=== PATIENT | male | born 1965 | race Caucasian/White ===

== ENCOUNTER 2024-05-21 11:29 | Inpatient (IN) | payer OTHER, SELFPAY ==
[2024-05-21] VITALS (23 sets, daily range): BP systolic 135–180; BP diastolic 81–99; PULSE 52–86; RESP 14–18; TEMP 35.7–36.9; O2SAT 95–99; BMI 34.7
--- NOTE | 2024-05-21 12:16 | EDS_ITS ---
HPI History of Present Illness Chief Complaint: Chest Pain Informant: patient Onset/Context/Timing Onset: Today and Hours (1) Activity at onset: sudden and exertion Timing: Continuous Quality: Positive for Aching and Heaviness Location: Substernal Worsened By: Nothing Relieved By: Nothing Associated Symptoms: Positive for Diaphoresis, Cough and Lightheadedness; Negative for Nausea, Vomiting, Dyspnea, Fever, Acid Reflux or Palpitations Narrative Narrative: Patient presents with chest pain that began today. Patient states it began approximately an hour before arrival. Patient states it feels like there is some aching and heaviness in the substernal area. Patient denies any radiation of the pain. Patient states has been constant. Patient states he was moving furniture when this began. Patient admits to some mild diaphoresis with this. Patient also admits to some lightheadedness. Patient states he has had a cough recently. Patient states he has been having some pain in both forearms. Patient denies any shortness of breath. Patient denies any nausea or vomiting. Patient denies any palpitations. CVD Risk Factors: Negative for Hypertension, Diabetes, Hypercholesterolemia, Family History 1' </=55 or Smoking PE Risk Factors: Negative for Recent Travel/Surgery, Recent Immobilization, Prior DVT or PE or Cancer PFSH PFS Medical History no medical history no medical history Home Medications ?Medication ?Instructions ?Recorded ?Last Taken ?Type NK 05/21/24 Unknown History Allergy/AdvReac Type Severity Reaction Status Date / Time iodine Allergy Anaphylaxis Verified 05/21/24 11:34 shellfish derived Allergy Anaphylaxis Verified 05/21/24 11:34 Surgical History (Updated 05/21/24 @ 12:[address] Joby Corral DO) Hx of knee surgery Social History Smoking Status: Never smoker ROS ROS ED Constitutional Constitutional ED: Denies chills or fever(s) Eyes Eyes: Denies blurry vision or change in vision ENT ENT ED: Denies rhinorrhea or sore throat Cardiovascular Cardiovascular: Reports as per HPI and chest pain; Denies palpitations Respiratory/Chest Respiratory/Chest: Reports cough; Denies dyspnea Gastrointestinal Gastrointestinal: Denies nausea or vomiting Genitourinary Genitourinary ED: Denies dysuria or hematuria Musculoskeletal Musculoskeletal: Denies back pain or neck pain Integumentary Denies abscess or rash Neurologic Neurologic: Denies headache(s) or weakness Allergic/Immunologic Allergic/Immunologic ED: Denies mouth swelling or urticaria EXAM Physical Exam Const Vital Signs: 05/21/24 11:30 05/21/24 11:35 05/21/24 12:33 Temperature 96.3 F L Temperature Source Temporal Pulse Rate 56 L 56 L Respiratory Rate 14 Respiratory Effort Normal Non-Labored Blood Pressure 180/92 H 164/92 H Blood Pressure Mean 121 Pulse Ox 98 Oxygen Delivery Method Room Air 05/21/24 12:37 05/21/24 12:38 05/21/24 12:42 Temperature 98.1 F Temperature Source Oral Pulse Rate 77 62 Respiratory Rate 16 Respiratory Effort Blood Pressure 164/92 H 146/87 H Blood Pressure Mean 116 Pulse Ox 97 98 Oxygen Delivery Method Room Air Room Air 05/21/24 12:46 05/21/24 13:05 05/21/24 14:00 Temperature Temperature Source Pulse Rate 63 86 58 L Respiratory Rate 16 14 Respiratory Effort Blood Pressure 141/84 H 135/84 H 141/86 H Blood Pressure Mean 101 102 Pulse Ox 99 98 Oxygen Delivery Method Room Air 05/21/24 15:00 05/21/24 15:18 Temperature Temperature Source Pulse Rate 60 59 L Respiratory Rate 14 Respiratory Effort Blood Pressure 157/87 H 173/90 H Blood Pressure Mean 109 Pulse Ox 98 Oxygen Delivery Method Positive well nourished and well developed General Appearance ED: well developed and NAD HEENT Reports moist mucous membranes Neck supple and no JVD Resp normal respiratory effort and clear to auscultation bilaterally Cardio regular rate and regular rhythm GI soft to palpation, non-tender and non-distended Neuro oriented x3, CN's II-XII intact bilaterally and no sensory deficits noted Sensorium / Orientation: awake and alert Motor Exam: strength 5/5 throughout Psych mental status grossly normal Heart Score History: Highly Suspicious ECG: Normal Age: >45 - <65 years Risk Factors: No Risk Factors Troponin: >1 - <3 Normal Limit Score: 4 MDM MDM MDM Narrative Medical decision making narrative: Differential diagnosis includes cardiac dysrhythmia, cardiac ischemia, pneumonia, pneumothorax, electrolyte abnormality, GERD, musculoskeletal pain, and anxiety. Patient has a Wells score of 0. I do not feel this is from a pulmonary embolism. EKG will be obtained to assess for cardiac dysrhythmia and cardiac ischemia. Chest x-ray will be obtained to assess for pneumonia and pneumothorax. CBC will be obtained to assess for leukocytosis and anemia. Basic metabolic profile will be obtained to assess for electrolyte abnormality and renal function. High-sensitivity troponin will be obtained to assess for cardiac ischemia. 2-hour repeat high-sensitivity troponin will be obtained to assess for ongoing cardiac ischemia. Lab Data Attestation: I reviewed the patient's lab results. Lab results narrative: CBC was reviewed. There is a slight leukocytosis of 11.7. The remainder is within normal limits. Basic metabolic profile was reviewed. Potassium was slightly low at 3.1. The remainder was essentially within normal limits. Initial high-sensitivity troponin was reviewed and was normal at 8. 2-hour repeat high-sensitivity troponin was reviewed and was elevated at 218. Labs: Laboratory Results - last 24 hr 05/21/24 05/21/24 11:15 13:15 WBC 11.7 H RBC 5.26 Hgb 15.3 Hct 46.4 MCV 88.2 MCH 29.1 MCHC 33.0 RDW Std Deviation 41.9 RDW Coeff of Oswaldo 12.9 Plt Count 257 MPV 11.3 Immature Gran % (Auto) 0.900 Neut % (Auto) 45.4 L Lymph % (Auto) 40.3 [place] % (Auto) 9.5 Eos % (Auto) 2.9 Baso % (Auto) 1.0 Absolute Neuts (auto) 5.3 Absolute Lymphs (auto) 4.71 H Nucleated RBC % 0 Sodium 140 Potassium 3.1 L Chloride 105 Carbon Dioxide 28.0 Anion Gap 7 BUN 19 H Creatinine 1.00 Est GFR (MDRD) Af Amer 99 Est GFR (MDRD) Non-Af 82 BUN/Creatinine Ratio 19.0 Glucose 125 H Calcium 9.3 Troponin I High Sens 8 218 H* Radiography Chest X-Ray - ED: 1 View, Read by ED Physician, Read by Radiologist and No Acute Disease Diagnostic Testing: Clinical Impression(s) from Imaging Studies Chest X-Ray 05/21/24 12:35 IMPRESSION: No active or acute cardiopulmonary disease. Electronically Signed: Francisco J Leblanc MD at 12:51 EDT Reading Location ID and State: [address] [place] [address] , Service support , Portable 1 view chest x-ray was obtained. On my independent interpretation, lung hanna are clear. There is normal cardiac silhouette. Bony thorax is normal. There is no acute process noted. Radiologist also interpreted the x- ray and agrees. EKG Initial EKG: Attestation: I personally reviewed and interpreted this EKG as follows: Interpretation: No Acute Injury Pattern and Sinus Bradycardia (54) Comments: EKG was obtained. On my independent interpretation, it showed a sinus bradycardia with a rate of 54. SC interval, QRS interval, and QTc interva ls were all normal. [place] was normal. There are no acute ST or T wave changes. Prior EKG tracings: not available for review Prior: No Prior Follow-up EKG: Attestation: I personally reviewed and interpreted this EKG as follows: Interpretation: No Acute Injury Pattern and Sinus Bradycardia (57) Comments: EKG was obtained. On my independent interpretation, it showed a sinus bradycardia with a rate of 57. SC interval, QRS interval, and QTc intervals were all normal. [place] was normal. There are no acute ST or T wave changes. Treatment and Re-Evaluation :: Patient was given aspirin and sublingual nitroglycerin here. Patient's pain improved with nitroglycerin. Patient was given a dose of potassium here. Patient was placed on nitroglycerin paste. Patient was advised of his findings. Case was discussed with cardiology. He recommended giving the patient enoxaparin 1 mg/kg. He recommended admitting the patient to the hospitalist. Case was discussed with the hospitalist. He was in to evaluate the patient. He recommended having cardiology come see him in the emergency department for possible cardiac catheterization. Patient started having more chest pain again despite being on nitroglycerin paste. Because of this, the enoxaparin was held. Cardiology was in to evaluate the patient. He recommended take the patient to the Certified Nuclear Medicine Technologist. Patient was given a dose of Brilinta per Dr. Hollins's recommendation. Patient understood and was agreeable with the plan. All questions were answered. Critical Care Time Critical Care Time: Yes Critical care time (excluding procedures): 30-74 minutes (33 minutes), Including time spent:, Discussing w/Patient &/or Family/Business Management Professor, Discussing w/Consultants, Arranging Admission or Transfer and Performing Direct Patient Care at Bedside Discharge Plan Dx/Rx/DC Orders Clinical Impression: Non-ST elevated myocardial infarction (non-STEMI), Chest pain, Elevated blood pressure reading, Hypokalemia Disposition Disposition: Acute Care Hospital [facility]
--- NOTE | 2024-05-21 12:22 | EKG12_ITS ---
Test Reason : REPEAT Blood Pressure : / mmHG Vent. Rate : 057 BPM Atrial Rate : 057 BPM P-R Int : 168 ms QRS Dur : 086 ms QT Int : 424 ms P-R-T Axes : 012 005 019 degrees QTc Int : 412 ms Sinus bradycardia Nonspecific hyperacute T changes compared to ECG 05/21/2024 @ 11:40 Abnormal ECG Confirmed by Qasim Collado ([id number]), supervising film or videotape editor JOVI HARDY ([id number]) on 05/22/2024 11:19:09 AM Referred By: Confirmed By:Qasim Collado
[2024-05-21 12:32] LABS: Absolute Lymphocyte Count 4.71 X10^3/uL (0.83-4.51); Absolute Neutrophil Count 5.3 X10^3/uL (2.0-7.7); Basophil# 0.12 X10^3/uL; Eosinophil# 0.34 X10^3/uL; Eosinophils% 2.9 % (0-5); Hematocrit 46.4 % (40-54); Hemoglobin 15.3 g/dL (13.0-16.5); Lymphocyte # 4.71 X10^3/ul (0.83-4.51); Lymphocyte % 40.3 % (19-41); Mean Corpuscular Hgb 29.1 pg (27.0-32.0); Mean Corpuscular Volume 88.2 fL (80-94); Mean Platelet Vol. 11.3 fl (6.2-12.0); Monocyte# 1.11 X10^3/uL; Monocyte% 9.5 % (0-10); NRBC Flagged by Analyzer 0 % (0-5); Neutrophil % 45.4 % (47-70); Platelet Count 257 K/mm3 (150-450); RBC Distribution Width CV 12.9 % (11.6-14.6); RBC Distribution Width SD 41.9 fl (35.1-43.9); Red Blood Count 5.26 M/mm3 (4.6-6.2); White Blood Count 11.7 K/mm3 (4.4-11.0)
[2024-05-21] MEDS: Nitroglycerin SL (ED/IMG/CATH) 0.4 MG TABLET SL ×3 (12:33→12:46)
--- NOTE | 2024-05-21 12:35 | RAD_ITS ---
STUDY: X-RAY CHEST REASON FOR EXAM: Male, 59 years old. Chest pain. TECHNIQUE: Single frontal view of the chest. COMPARISON: None. FINDINGS: The lungs are clear and expanded. There is no demonstrated pleural abnormality. Normal size heart. Normal mediastinum and stephanie. Normal visualized pulmonary arteries. Normal visualized aortic arch and descending thoracic aorta. No abnormality of the visualized soft tissue structures of the upper abdomen. RAD/Chest 1 View (Portable) IMPRESSION: No active or acute cardiopulmonary disease. Electronically Signed: Francisco J Leblanc MD at 12:51 EDT ,
[2024-05-21 12:51] LABS: Anion Gap 7 (5-15); BUN 19 mg/dL (7-18); Calcium,Total 9.3 mg/dL (8.5-10.1); Chloride 105 mmol/L (98-107); EST Glomerular Filtration Rate 82 mL/min (>60); Est Glom Filt Rate - Afr Amer 99 mL/min (>60); Glucose 125 mg/dL (74-106); Potassium 3.1 mmol/L (3.5-5.1); Sodium Level 140 mmol/L (136-145); Troponin-I HS (w/2H Reflex) 8 pg/mL (3.0-78.0)
--- NOTE | 2024-05-21 13:30 | ED.RN ---
Pt called out stating that he stood to urinate and his pain returned. Pt states it is now a 3/10 up from 12/05. Also concerned that HR went down into the 50s. HR at time of conversation is 63 bpm. made aware of pt concerns.
[2024-05-21 14:30] LABS: Reflex Troponin-HS? (from REC) Y
[2024-05-21] MEDS: Potassium Chloride Oral Tablet 20 MEQ 40 MEQ PO (14:43)
[2024-05-21 15:06] LABS: Troponin-I HS 218 pg/mL (3.0-78.0)
--- NOTE | 2024-05-21 15:17 | EKG12_ITS ---
Test Reason : CHEST PAIN Blood Pressure : / mmHG Vent. Rate : 054 BPM Atrial Rate : 054 BPM P-R Int : 182 ms QRS Dur : 078 ms QT Int : 418 ms P-R-T Axes : 033 017 027 degrees QTc Int : 396 ms Sinus bradycardia Otherwise normal ECG Confirmed by Qasim Collado ([id number]), offline editor JOVI HARDY ([id number]) on 05/22/2024 11:19:32 AM Referred By: Confirmed By:Qasim Collado
[2024-05-21] MEDS: Nitroglycerin Oint 1 INCH PACKET TD (15:18)
--- NOTE | 2024-05-21 15:44 | PCM.HP.STD ---
HPI - General General Date of Admission: 05/21/24 Date of Service: 05/21/24 Chief Complaint: Chest pain HPI Narrative TERRY REYES, is a 59 M who presents to the emergency room at [facility] with chief complaint of chest pain which started earlier today, patient's thought it was musculoskeletal in nature and took a prednisone, despite this he has been having ongoing chest pain today on and off especially when he tries to exert himself. Patient states that it got really severe when he tried to move some furniture today. Patient states that he had pain down both of his arms today while he had the chest discomfort. Patient was given a nitroglycerin in the ER with resolution of the chest pain. Patient has no history of diabetes, he is not a smoker, there is no history of heart disease in any of his family members. Is got a strong history for hypertension in his family but he has not been diagnosed with hypertension he does not take any medication. Patient was recently in his PCPs office for an exam and his blood pressure was 120/80. Patient states his cholesterol was around 225 and his LDL cholesterol was approximately 130-140. EKG was obtained in the emergency room, it showed nonspecific ST changes in V1 through V3 but no evidence of ischemic pattern. He had a sinus bradycardia. CBC showed an elevated white blood cell count at 11.7, chemistry profile was abnormal for potassium of 3.1, BUN was 19, glucose was 125. Patient's troponin initially was normal, repeat troponin was elevated at 218. Initial plan was for the patient to be admitted to PCU and placed on full anticoagulation and Nitropaste, however, the patient tells me whenever he does anything in the ER like walk to the bathroom he has recurrence of the chest pain. His family seem to be concerned and I called and talked to the gate mortiser operator on-call (Dr. Collado) he will come down to the ER to talk with the patient and examine him. Patient has had nothing to eat since early this morning. It is probable he will undergo heart catheterization. Additional note: Patient underwent a cardiac catheterization which showed the proximal LAD to be blocked to 100% with collateral flow, the first diagonal branch had 40 to 50% occlusion. A NICOLE was inserted in the LAD. Patient's EF was estimated to be 45 to 50%. Patient will be admitted to PCU for further care and cardiology will participate in his care. [facility] Medical History no medical history Home Medications ?Medication ?Instructions ?Recorded ?Last Taken ?Type NK 05/21/24 Unknown History Allergy/AdvReac Type Severity Reaction Status Date / Time iodine Allergy Anaphylaxis Verified 05/21/24 11:34 shellfish derived Allergy Anaphylaxis Verified 05/21/24 11:34 Family History Other CVA (cerebral vascular accident) Surgical History Hx of knee surgery Social History Smoking Status: Never smoker ROS Constitutional Constitutional: Denies anorexia, change in weight, chills, fatigue, fever(s), night sweats or weakness Eyes Eyes: Denies blurry vision, change in vision, discharge from eye(s) or eye pain Cardiovascular Cardiovascular: Reports chest pain; Denies claudication, edema or palpitations Respiratory/Chest Respiratory/Chest: Denies cough, dyspnea, hemoptysis, shortness of breath at rest or shortness of breath with exertion Gastrointestinal Gastrointestinal: Denies abdominal pain, constipation, diarrhea, hematemesis, hematochezia, melena, nausea or vomiting Genitourinary Genitourinary: Denies dysuria, hematuria, urinary frequency, urinary hesitancy, urinary incontinence or urinary urgency Musculoskeletal Musculoskeletal: Denies back pain, joint pain, joint stiffness, joint swelling, myalgias or neck pain Neurologic Neurologic: Denies abnormal gait, abnormal speech, dizziness, focal weakness, headache(s), loss of vision, numbness, other visual disturbances, paresthesias, syncope or tingling Psychiatric Psychiatric: Denies anxiety, cognitive impairment, depression, irritability, mood swings or suicidal ideation Endocrine Endocrinology: Denies change in body appearance, cold intolerance, excessive sweating, heat intolerance, polydipsia or polyuria Hematologic/Lymphatic Hematologic/Lymphatic: Denies none, anemia, easy bleeding, easy bruising or lymphadenopathy Allergic/Immunologic Allergic/Immunologic: Denies rhinitis, urticaria, eczemia or asthma Vital Signs Vital Signs Vital Signs: 05/21/24 11:30 05/21/24 11:35 05/21/24 12:33 Temperature 96.3 F L Temperature Source Temporal Pulse Rate 56 L 56 L Respiratory Rate 14 Respiratory Effort Normal Non-Labored Blood Pressure 180/92 H 164/92 H Blood Pressure Mean 121 Pulse Ox 98 Oxygen Delivery Method Room Air 05/21/24 12:37 05/21/24 12:38 05/21/24 12:42 Temperature 98.1 F Temperature Source Oral Pulse Rate 77 62 Respiratory Rate 16 Respiratory Effort Blood Pressure 164/92 H 146/87 H Blood Pressure Mean 116 Pulse Ox 97 98 Oxygen Delivery Method Room Air Room Air 05/21/24 12:46 05/21/24 13:05 05/21/24 14:00 Temperature Temperature Source Pulse Rate 63 86 58 L Respiratory Rate 16 14 Respiratory Effort Blood Pressure 141/84 H 135/84 H 141/86 H Blood Pressure Mean 101 102 Pulse Ox 99 98 Oxygen Delivery Method Room Air 05/21/24 15:00 05/21/24 15:18 Temperature Temperature Source Pulse Rate 60 59 L Respiratory Rate 14 Respiratory Effort Blood Pressure 157/87 H 173/90 H Blood Pressure Mean 109 Pulse Ox 98 Oxygen Delivery Method Weight Weight: 106.594 kg Body Mass Index (BMI) 34.7 Physical Exam Const alert, oriented x3, no apparent distress, average body habitus and healthy appearing General Appearance: cooperative, well kempt and well developed Orientation / Consciousness: awake, oriented to person, oriented to place and oriented to time HEENT normocephalic and moist oral mucous membranes Eyes PERRL, EOMs intact bilaterally and conjunctivae normal Neck supple, no JVD, thyroid normal and no carotid bruits General: trachea midline Resp normal respiratory effort, no retractions, no use of accessory muscles and clear to auscultation bilaterally Auscultation: Negative for rales, rhonchi or wheezes Cardio regular rate, regular rhythm, S1 normal heart sound, S2 normal heart sound, no murmurs, no rub and no gallops GI normal to inspection, nondistended, normoactive bowel sounds, soft to palpation, non-tender and non-distended Extremity no clubbing, cyanosis or edema Skin no rashes or lesions noted General Skin Exam: no breakdown Neuro oriented x3, CN's II-XII intact bilaterally, no focal motor deficits and no sensory deficits noted Sensorium / Orientation: awake and alert Speech: speech normal Psych Psych Narrative: Patient appears mildly anxious Results Lab / Micro Data 05/21/24 11:15 05/21/24 11:15 Labs: Laboratory Results - last 24 hr 05/21/24 11:15: WBC 11.7 H, RBC 5.26, Hgb 15.3, Hct 46.4, MCV 88.2, MCH 29.1, MCHC 33.0, RDW Std Deviation 41.9, RDW Coeff of Oswaldo 12.9, Plt Count 257, MPV 11.3, Immature Gran % (Auto) 0.900, Neut % (Auto) 45.4 L, Lymph % (Auto) 40.3, [place]th % (Auto) 9.5, Eos % (Auto) 2.9, Baso % (Auto) 1.0, Absolute Neuts (auto) 5.3, Absolute Lymphs (auto) 4.71 H, Nucleated RBC % 0, Sodium 140, Potassium 3.1 L, Chloride 105, Carbon Dioxide 28.0, Anion Gap 7, BUN 19 H, Creatinine 1.00, Est GFR (MDRD) Af Amer 99, Est GFR (MDRD) Non-Af 82, BUN/Creatinine Ratio 19.0, Glucose 125 H, Calcium 9.3, Troponin I High Sens 8 05/21/24 13:15: Troponin I High Sens 218 H* Imaging Radiology Impression Chest X-Ray 05/21/24 12:35 IMPRESSION: No active or acute cardiopulmonary disease. Electronically Signed: Francisco J Leblanc MD at 12:51 EDT , Assessment & Plan Assessment/Plan (1) Non-ST elevated myocardial infarction (non-STEMI): PLAN: Plan 1. Non-ST elevation NV-type II-patient was admitted to PCU after his drug-eluting stent insertion in the LAD, he will be kept on a beta-adrianna, statin, and he was placed on an ARB by cardiology. Echocardiogram will be performed tomorrow, he will also be maintained on 81 mg aspirin daily and Plavix 75 mg daily. #2 probable essential hypertension-this is new diagnosis for the patient, medications were started by cardiology #3 hypokalemia-patient was given supplemental potassium. Labs will be rechecked. Total clinical time spent by myself addressing the patient's medical issues, reviewing his data, and collaborating with patient's care team: 55 minutes Charges/Coding Visit Charges Inpatient E&M: 13948 Init Hosp L2
--- NOTE | 2024-05-21 16:07 | PCM.CONS.C ---
Assessment & Plan Assessment/Plan (1) Non-ST elevated myocardial infarction (non-STEMI): PLAN: Patient's symptoms are consistent with acute coronary syndrome sudden onset of chest discomfort associated with diaphoresis improved with rest and nitro. Subsequently the patient had recurrence of symptoms with minimal activity and then at rest while in the emergency department. EKG is suggestive of hyperacute T waves in 1 and aVL. Enzymes went from a high-sensitivity troponin of 8 to 218. Further recommendation considering secondary risk factor modification therapy will be forthcoming after our initial intervention. Recommend emergent/urgent heart catheterization to define the coronary anatomy. Dr. Martínez Vaca will do the cath. (2) Elevated blood pressure reading: PLAN: Blood pressures been elevated in the emergency department we will add beta-adrianna and DIANNA inhibitor/ARB therapy as indicated postprocedure. (3) Hypokalemia: PLAN: Patient's potassium was replaced with oral potassium chloride initial potassium was 3.1 with an uncertain etiology. The patient is on no medications at home. PLAN: Plan 1. Emergent left heart catheterization and possible percutaneous revascularization. The procedure risk/benefit and alternatives were explained to the patient and family in detail they voiced understanding and agreed to proceed. 2. For the secondary risk factor modifications and/or further medical therapy will be determined pending the outcome of the catheterization. HPI Consult Data Date of Consult: 05/21/24 HPI Narrative Reason for Consultation: Suspected acute coronary syndrome HPI Narrative: TERRY REYES, is a 59 M who presents new onset chest pain described as a retrosternal discomfort associated with diaphoresis. It initially started today around 10:00 when he was moving some furniture around with rest it got some better but did not resolved he called the EMS and was brought to the emergency department. Initial EKG done at 1139 hrs. showed sinus bradycardia at 54 bpm and was otherwise unremarkable. Initial troponin was 8 the patient was placed on nitro with improvement and resolution of his chest symptoms initially. However the patient's second troponin came back over 200. A repeat EKG showed slight increase in hyperacute T waves at 1523 hrs. Currently the patient appears anxious and mildly diaphoretic. He is complaining of a recurrence of the chest discomfort but is milder than what he had that brought him into the emergency department. The patient will be pretreated with Brilinta and aspirin. He is on Nitropaste. He does have a history of a topical iodine allergy with a rash from the iodine prep. We will therefore pretreat him with Solu-Medrol and Benadryl prior to the cath. The patient does not have a family history of known coronary disease there is a family history of CVAs. He himself has borderline hyperlipidemia cholesterol in the 200s. He also does not smoke. His blood pressures have not been elevated prior to today but they are elevated in the emergency department in the 1 60-1 70 systolic range. PFSH Medical History no medical history Home Medications ?Medication ?Instructions ?Recorded ?Last Taken ?Type NK 05/21/24 Unknown History Allergy/AdvReac Type Severity Reaction Status Date / Time iodine Allergy Anaphylaxis Verified 05/21/24 11:34 shellfish derived Allergy Anaphylaxis Verified 05/21/24 11:34 Family History Other CVA (cerebral vascular accident) Surgical History Hx of knee surgery Social History Smoking Status: Never smoker ROS Constitutional Constitutional: Reports as per HPI Eyes Eyes: Reports systems reviewed and no addt'l complaints, except as documented ENT HEENT: Reports systems reviewed and no addt'l complaints, except as documented Cardiovascular Cardiovascular: Reports as per HPI Respiratory/Chest Respiratory/Chest: Reports as per HPI Gastrointestinal Gastrointestinal: Reports systems reviewed and no addt'l complaints, except as documented Genitourinary Genitourinary: Reports systems reviewed and no addt'l complaints, except as documented Musculoskeletal Musculoskeletal: Reports systems reviewed and no addt'l complaints, except as documented Integumentary Integumentary: Reports systems reviewed and no addt'l complaints, except as documented Neurologic Neurologic: Reports systems reviewed and no addt'l complaints, except as documented Psychiatric Psychiatric: Reports systems reviewed and no addt'l complaints, except as documented Endocrine Endocrinology: Reports systems reviewed and no addt'l complaints, except as documented Hematologic/Lymphatic Hematologic/Lymphatic: Reports systems reviewed and no addt'l complaints, except as documented Allergic/Immunologic Allergic/Immunologic: Reports as per HPI Physical Exam Const alert and oriented x3 Constitutional Narrative: Anxious and mildly diaphoretic HEENT normocephalic Eyes EOMs intact bilaterally Neck no JVD and no carotid bruits Chest inspection of chest normal Resp normal respiratory effort and clear to auscultation bilaterally Cardio regular rate, regular rhythm, S1 normal heart sound, S2 normal heart sound, no murmurs, no rub and no gallops Peripheral Pulses: radial pulses present bilateral 2+ and popliteal pulses present bilateral 2+ GI soft to palpation Extremity no pedal edema Skin no rashes or lesions noted Neuro Neuro Narrative: Alert and oriented x 3 Psych mental status grossly normal Risk Stratification Risk Stratification Applicable: Yes Age >/= 65: No >/= 3 CAD Risk Factors (HTN, HLD, DM, family hx of CAD, or current smoker): Yes Aspirin Use in the Past 7 Days: No Severe Angina (>/= episodes in 24 hours): Yes EKG ST Changes >/= 0.5mm: No Positive Cardiac Marker: Yes CECILY Risk Stratification Score: 3 CECILY % Risk: 13% Risk Charges/Coding Visit Charges Inpatient E&M: 64747 Init Hosp L3 Objective Data Vital Signs: Vital Signs Temp Pulse Resp BP Pulse Ox O2 Del Method 98.2 F 67 15 168/99 H 98 Room Air 05/21/24 15:59 05/21/24 16:00 05/21/24 16:00 05/21/24 15:59 05/21/24 16:00 05/21/24 13:05 Oxygen Delivery Method Room Air Weight: 235 lb Body Mass Index (BMI) 34.7 Intake & Output: Intake and Output for Last 24 Hours 05/19/24 05/20/24 05/21/24 23:59 23:59 23:59 Intake Total 0 / 0 Balance 0 / 0 Lab / Micro Data Attestation: I reviewed the patient's lab results. 05/21/24 11:15 05/21/24 11:15 Labs: Laboratory Results - last 24 hr 05/21/24 11:15: WBC 11.7 H, RBC 5.26, Hgb 15.3, Hct 46.4, MCV 88.2, MCH 29.1, MCHC 33.0, RDW Std Deviation 41.9, RDW Coeff of Oswaldo 12.9, Plt Count 257, MPV 11.3, Immature Gran % (Auto) 0.900, Neut % (Auto) 45.4 L, Lymph % (Auto) 40.3, Van Zandt % (Auto) 9.5, Eos % (Auto) 2.9, Baso % (Auto) 1.0, Absolute Neuts (auto) 5.3, Absolute Lymphs (auto) 4.71 H, Nucleated RBC % 0, Sodium 140, Potassium 3.1 L, Chloride 105, Carbon Dioxide 28.0, Anion Gap 7, BUN 19 H, Creatinine 1.00, Est GFR (MDRD) Af Amer 99, Est GFR (MDRD) Non-Af 82, BUN/Creatinine Ratio 19.0, Glucose 125 H, Calcium 9.3, Troponin I High Sens 8 05/21/24 13:15: Troponin I High Sens 218 H* Cardiology Labs/Tests 05/21/24 11:15: WBC 11.7 H, RBC 5.26, Hgb 15.3, Hct 46.4, MCV 88.2, MCH 29.1, MCHC 33.0, Plt Count 257, MPV 11.3, Immature Gran % (Auto) 0.900, Neut % (Auto) 45.4 L, Lymph % (Auto) 40.3, [place] Z[place]t % (Auto) 9.5, Eos % (Auto) 2.9, Baso % (Auto) 1.0, Absolute Neuts (auto) 5.3, Nucleated RBC % 0, Sodium 140, Potassium 3.1 L, Chloride 105, Carbon Dioxide 28.0, Anion Gap 7, BUN 19 H, Creatinine 1.00, Est GFR (MDRD) Af Amer 99, Est GFR (MDRD) Non-Af 82, BUN/Creatinine Ratio 19.0, Glucose 125 H, Calcium 9.3 Rhythm: EKG: ECHO: Stress Test: Cardiac Cath: PCI: CT Surgery: Holter monitor: EPS: PPM: CXR: Chest CT Scan: Radiography Diagnostic Testing: Radiology Impression Chest X-Ray 05/21/24 12:35 IMPRESSION: No active or acute cardiopulmonary disease. Electronically Signed: Francisco J Leblanc MD at 12:51 EDT ,
[2024-05-21] MEDS: TICAGRELOR 90 MG TABLET 180 MG PO (16:08)
--- NOTE | 2024-05-21 17:11 | CL.D_ITS ---
Patient Name: TERRY REYES Study Date: 05/21/2024 Performing: Martínez Vaca MD Ht: 69 inches 175.26 cm : 1965 Wt: 234.99 lbs 106.59 kg Age: 59 Gender: male BSA: 2.21 PROCEDURE(S) PERFORMED DC01-(02848)LHC/COR/LV IC12-(28925/C9600)NICOLE W/WO PTCA, SINGLE CORONARY ARTERY CLINICAL PROFILE AND INDICATIONS Indications: Worsening Angina Heart Failure: None Stress/Imaging Stress/Image Study Performed: No CAD Presentations: Unstable angina. CONCLUSIONS Coronary artery disease with proximal to mid LAD with subtotal occlusion after the septal conference services director with a large diagonal branch with a proximal stenosis noted. Distal collaterals seen filling via right to left of the distal LAD. RECOMMENDATIONS Referred for immediate PCI DESCRIPTION OF PROCEDURE The patient arrived to the procedure lab. The risks and benefits of the procedure as well as a full description of our services here and current unavailability of surgical backup were fully explained to the patient and/or their significant other prior to the catheterization. The Timeout was completed, verifying the correct patient and procedure. The patient's procedural site was prepped and draped in the usual fashion. Local anesthetic was given subcutaneously to right radial region with Lidocaine 2%. Using a modified Seldinger technique, arterial access was obtained via the right radial artery, a 6Fr sheath was inserted. Right Coronary Artery selective angiography was then performed in multiple views using a 5 Fr. 4.0 Fentress catheter. Left Coronary Artery selective angiography was performed in multiple views using a 5 Fr. 4.0 Fentress catheter. Left Ventriculography was performed in CUMMINS projection using a 5 Fr. Pigtail catheter. LV to AO pullback pressures were then recorded. CORONARY ANGIOGRAPHY DOMINANCE: Right Dominant LEFT HEART ASSESSMENT Left Ventricular Ejection Fraction: by LV Gram 55 % Normal LV wall motion LEFT MAIN: Angiographically normal LEFT ANTERIOR DESCENDING ARTERY: This vessel appears to be totally occluded in the midsegment. Distal collateral filling is noted. DIAGONAL 1: Ostial - 80 % Stenosis CIRCUMFLEX ARTERY: No significant disease noted RIGHT CORONARY ARTERY: Angiographically normal COLLATERAL FLOW: Collateral flow from Right to Left COMPLICATIONS PROCEDURE MEDICATIONS Versed 1 mg IV Versed 1 mg IV Versed 1 mg IV Fentanyl 50 mcg IV Oxygen: 2 L/min via nasal cannula Benadryl 50 mg IV @ 05/21/2024 16:28:34 Heparin given IA 05/21/2024 16:36:46 Heparin 8000 unit(s) IV 05/21/2024 17:04:20 Solu-medrol 125 mg IV 05/21/2024 16:28:27 SUMMARY OF HEMODYNAMIC DATA Time AIR REST ECG 16:24:51 AO 114/63 (86) SA 16:37:04 LV 126/-11, 8 16:47:21 LV 132/-11, 9 16:47:28 LV 127/-11, 7 16:48:11 LVp 123/-9, 5 16:48:15 AOp 152/66 (97) 16:48:22 Signed By Martínez Vaca MD On 05/21/2024 17:10:33 Martínez Vaca MD
--- NOTE | 2024-05-21 17:41 | CL.I_ITS ---
Patient Name: TERRY REYES Study Date: 05/21/2024 Performing: Manyor Moreno MD Ht: 69 inches 175.26 cm : 1965 Wt: 234.99 lbs 106.59 kg Age: 59 Gender: male BSA: 2.21 PROCEDURE(S) PERFORMED IC12-(36379/C9600)NICOLE W/WO PTCA, SINGLE CORONARY ARTERY CLINICAL PROFILE AND CO-MORBIDITIES Indications: Worsening Angina Heart Failure: None Stress/Imaging Stress/Image Study Performed: No CAD Presentations: Unstable angina. CONCLUSIONS Successful PTCA/NICOLE Mid LAD using [place] 2.5x38 mm RECOMMENDATIONS ASA Indefinitley Plavix for at least 12 months DESCRIPTION OF PROCEDURE The patient arrived to the procedure lab. The risks and benefits of the procedure as well as a full description of our services here and current unavailability of surgical backup were fully explained to the patient and/or their significant other prior to the catheterization. The Timeout was completed, verifying the correct patient and procedure. The patient's procedural site was prepped and draped in the usual fashion. Local anesthetic was given subcutaneously to right radial region with Lidocaine 2% Using a modified Seldinger technique,arterial access was obtained via the right radial artery, a 6Fr sheath was inserted. Right Coronary Artery selective angiography was then performed in multiple views using a 5 Fr. 4.0 Howe catheter. Left Coronary Artery selective angiography was performed in multiple views using a 5 Fr. 4.0 Howe catheter. Left Ventriculography was performed in CUMMINS projection using a 5 Fr. Pigtail catheter. LV to AO pullback pressures were then recorded.The images were reviewed and options discussed. A decision was then made to proceed with an Intervention, IVUS or other adjunct procedure. XB 3.0 Guide catheter was inserted and engaged into the LCA. Runthrough Guide wire was advanced to the LAD. 2 x 20 Emerge Balloon catheter was inserted. PTCA balloon inflated at 8 atms for 13 secs. PTCA balloon inflated at 8 atms for 8 secs. 2.5 x 38 [place] Drug Eluting stent was inserted. Drug Eluting stent was advanced across the lesion in the LAD, mid. Angiogram performed post stent deployment. 2.5 x 20 [place] Emerge Balloon catheter was inserted post stent. Angiogram performed post balloon dilatation. The arterial sheath was pulled and a TR Band was applied for hemostasis 14 cc air INTERVENTION INFORMATION LESION SITE: LAD (Mid) Lesion Complexity: High/C, thrombus present: Yes, lesion length: 36 mm, culprit lesion: Yes Pre Stenosis: 100 % Pre intervention CECILY flow: 0 PROCEDURE: Drug Eluting Stent with pre and post dilatation Post Stenosis: 0 % Post intervention CECILY flow: 3 Lesion Devices: Cordis 6 Fr XB3.0 100cm Guide Catheter Terumo .014 180cm Runthrough Extra Floppy straight Sean Sci EMERGE MR 2.00x20 BALLOON Medtronic 2.50 x 38 MOOK FRONTIER NICOLE Sean Sci NC EMERGE MR 2.50x20 BALLOON COMPLICATIONS No Complications PROCEDURE MEDICATIONS Versed 1 mg IV Versed 1 mg IV Versed 1 mg IV Fentanyl 50 mcg IV Oxygen: 2 L/min via nasal cannula Benadryl 50 mg IV @ 05/21/2024 16:28:34 Heparin given IA 05/21/2024 16:36:46 Heparin 8000 unit(s) IV 05/21/2024 17:04:20 Heparin 3000 unit(s) IV 05/21/2024 17:17:20 Nitro 200 mcg IC 05/21/2024 17:25:55 Nitro 200 mcg IC 05/21/2024 17:25:55 Solu-medrol 125 mg IV 05/21/2024 16:28:27 SUMMARY OF HEMODYNAMIC DATA Time AIR REST ECG 16:24:51 AO 114/63 (86) SA 16:37:04 LV 126/-11, 8 16:47:21 LV 132/-11, 9 16:47:28 LV 127/-11, 7 16:48:11 LVp 123/-9, 5 16:48:15 AOp 152/66 (97) 16:48:22 Signed By Maynor Moreno MD On 05/21/2024 17:40:32 Maynor Moreno MD
[2024-05-21] MEDS: 0.9% Normal Saline (1000mL) 1,000 ML 100 ML IV (18:30)
[2024-05-21] MEDS: Acetaminophen 325 MG Tablet 650 MG PO (20:04)
--- NOTE | 2024-05-21 20:14 | PCM.HOSP.N ---
Hospitalist Note Patient status postcardiac cath with unfortunately development of hematoma just above the access site. Nursing staff is notifying cardiology for instruction but at this point recommended that compression be placed until they give further instruction.
[2024-05-21] MEDS: Atorvastatin Calcium 40 MG Tablet PO (20:57)
[2024-05-21] MEDS: Carvedilol 3.125 MG TABLET PO (20:57)
[2024-05-21] MEDS: Clopidogrel Bisulfate 75 MG Tablet PO ×2 (20:57)
[2024-05-21] MEDS: Clopidogrel Bisulfate 300 MG Tablet PO (21:06)
[2024-05-22 03:33] VITALS: BP 146/92; PULSE 68; RESP 18; TEMP 36.5; O2SAT 98
[2024-05-22 05:17] LABS: Hematocrit 42.1 % (40-54); Hemoglobin 14.2 g/dL (13.0-16.5); Mean Corp Hgb Conc 33.7 g/dL (32-36); Mean Corpuscular Hgb 29.5 pg (27.0-32.0); Mean Corpuscular Volume 87.5 fL (80-94); Platelet Count 216 K/mm3 (150-450); RBC Distribution Width SD 41.2 fl (35.1-43.9); Red Blood Count 4.81 M/mm3 (4.6-6.2); White Blood Count 14.8 K/mm3 (4.4-11.0)
[2024-05-22 05:47] LABS: ALB/GLOB Ratio 1.1 RATIO (0.9-2.4); AST(SGOT) 153 U/L (15-37); Alanine Aminotransfer ALT/SGPT 58 U/L (16-61); Albumin, Serum 3.5 g/dL (3.2-5.0); Alkaline Phosphatase 60 U/L (45-117); Anion Gap 7 (5-15); BUN 20 mg/dL (7-18); BUN/Creat Ratio 26.4 RATIO (10-20); Calcium,Total 8.8 mg/dL (8.5-10.1); Chloride 109 mmol/L (98-107); Cholesterol 237 mg/dL (200); Creatinine, Serum 0.76 mg/dL (0.70-1.30); EST Glomerular Filtration Rate 113 mL/min (>60); Est Glom Filt Rate - Afr Amer 137 mL/min (>60); Estimated Creatinine Clearance 129.02 ml/min; Globulin 3.2 g/dL (2.2-4.2); Glucose 152 mg/dL (74-106); High Density Lipoprotein 53 mg/dL; Potassium 4.3 mmol/L (3.5-5.1); Protein, Total 6.7 g/dL (6.4-8.2); Sodium Level 138 mmol/L (136-145); Triglycerides 111 mg/dL; Very Low Density Lipoprotein 22 mg/dL (5-40)
--- NOTE | 2024-05-22 07:00 | ECHOCS_ITS ---
Reason For Study: CHEST PAIN Procedure This was a 2D Doppler, Color Flow transthoracic echocardiogram. The study was technically difficult. Exam performed portable in patient room. Left Ventricle Normal size and thickness. Mid to distal inferior septal, anterior septal and apical severe hypokinesis. LVEF estimated at 45%. Right Ventricle Normal right ventricle. Atria The left atrium is mildly enlarged. Normal right atrium. Mitral Valve Trivial mitral valve insufficiency. Tricuspid Valve Trivial tricuspid valve insufficiency. Right ventricular systolic pressure estimated to be 44 mmHg. Aortic Valve Trisinus/trileaflet aortic valve. Pulmonic Valve The pulmonic valve is not well visualized. Great Vessels Mildly dilated aortic root. Pericardium/Pleural No pericardial effusion. Medication Diluted definity 3.5ml given slow IV push to enhance endocardial definition. MMode/2D Measurements & Calculations LVIDd: 5.5 cm IVSd: 1.1 cm Ao root diam: 3.9 cm LVIDs: 4.0 cm LVPWd: 0.92 cm RVDd: 3.5 cm FS: 27.2 % LAV(MOD-bp): 53.9 ml LVAd ap4: 33.3 cm2 SV(MOD-sp4): 54.9 ml LAV(MOD-bp) Indexed: 24.4 ml/m2 LVLd ap4: 8.8 cm LAV(MOD-sp2): 58.2 ml EDV(MOD-sp4): 103.0 ml LAV(MOD-sp4): 51.1 ml EDV(sp4-el): 107.1 ml LVAs ap4: 20.7 cm2 LVLs ap4: 7.4 cm ESV(MOD-sp4): 48.1 ml ESV(sp4-el): 49.3 ml EF(MOD-sp4): 53.3 % EF(sp4-el): 53.9 % SV(sp4-el): 57.8 ml LA A4 area: 17.6 cm2 LA dimension(2D): 4.4 cm RA A4 area: 13.5 cm2 TAPSE: 3.0 cm Time Measurements MV dec time: 0.22 sec Doppler Measurements & Calculations MV E max cedrick: 57.6 cm/sec Lat Peak E' Cedrick: 11.8 cm/sec Med Peak E' Cedrick: 9.2 cm/sec MV A max cedrick: 73.2 cm/sec E/E' lat: 4.9 E/E' med: 6.3 MV E/A: 0.79 MV V2 max: 83.0 cm/sec MV P1/2t max cedrick: 75.0 cm/sec Ao V2 max: 128.5 cm/sec MV max P.8 mmHg MV P1/2t: 69.9 msec Ao max P.6 mmHg MV V2 mean: 40.4 cm/sec MV dec slope: 314.4 cm/sec2 Ao V2 mean: 89.7 cm/sec MV mean P.79 mmHg MVA(P1/2t): 3.1 cm2 Ao mean P.6 mmHg MV V2 VTI: 23.4 cm Ao V2 VTI: 31.6 cm AV (velocity ratio): 0.76 LV V1 max: 113.6 cm/sec PA V2 max: 111.9 cm/sec TR max cedrick: 271.1 cm/sec LV V1 max P.2 mmHg PA V2 mean: 72.0 cm/sec TR max P.4 mmHg LV V1 mean P.5 mmHg LV V1 mean: 73.2 cm/sec LV V1 VTI: 24.0 cm ECHO/Echo Complete W/ Contrast Interpretation Summary Mid to distal inferior septal, anterior septal and apical severe hypokinesis. L VEF estimated at 45%. The left atrium is mildly enlarged. Right ventricular systolic pressure estimated to be 44 mmHg. Mildly dilated aortic root. The study was technically difficult. Ordering Physician: Maynor Moreno Referring Physician: MAUREEN PCP Performed By: Clara Phoenix, JANKI, RVT
--- NOTE | 2024-05-22 07:58 | CRPHASE1_ITS ---
Patient Communication Patient Information Former Patient:: Phase I PHII Cardiac Rehab Discussed with Patient:: Yes Guide to Cardiac Rehab Given to Patient:: Yes Cardiac Rehab Facility Choice List Given to Patient:: Yes Communication to Cardiac Rehab Choice Program [facility] PHII:: Communication Given to CR Gas Pit Worker:: Maynor Moreno Sessions:: 36 sessions - 3 days/wk, 12 weeks Post Discharge Choice Letter Given to Patient:: Yes Guide to Cardiac Rehab Given by ICU Staff Prior to Discharge:: Yes Phase I Charge:: Level I - Education Medical/Surgical History Medical History [place]:: No Angina:: Yes CAD:: Yes Congestive Heart Failure: Cardiomyopathy:: No Valve Disease/Replacement:: No Pulmonary:: No COPD:: No Asthma:: No SHANTANU:: No Diabetes:: No Diabetes Type I:: No Diabetes Type II:: No Hypertension:: Yes Dyslipidemia:: No Arrhythmias:: No EPS:: No CVA/TIA: CEA:: No PE:: No DVT:: No PVD:: No PAD:: No Arthritis:: No GI:: No GERD:: No Cancer:: No Renal:: No Thyroid:: No Depression:: No Anxiety:: No Surgical History CABG: No PTCA:: Yes ICD:: No Pacemaker:: No Orthopedic:: No Cardiac Rehabilitation Info Program Information Cardiac Rehabilitation Program Information: Cardiac Rehab The cardiac rehab team at [facility] consists of highly skilled exercise physiologists, nurses, respiratory therapists and physicians working together with you. Our purpose is to help you have a full recovery and achieve the goals you set for yourself. Over the years many of our patients have returned to activities they assumed they would never do again! We can help restore your confidence and motivation to make lifestyle changes that can have a significant impact on your health and quality of life! We can help answer questions and concerns you may have about exercise, lifestyle, medications, diet, stress and anxiety which are common following a hospitalization. WE monitor ECG and vital signs during exercise and discuss your progress with you and report to your physician(s). Cardiac Rehab is proven to help reduce readmissions, improve functional capacity and lower recurrence of problems with your heart. Our Cardiac Rehab program is Certified by the [place] [employer] (AACVPR) and Accredited by the [employer] through our [facility]. You can contact us at . We invite you to call us with your questions or to get started in our program. If you have other questions or concerns be sure to ask your physician/provider during your follow-up visit. WE look forward to seeing you!
--- NOTE | 2024-05-22 08:00 | PN.HOSP_ITS ---
Reason for Visit Reason for Visit: Diagnoses Hypokalemia (05/21/24) Non-ST elevation (NSTEMI) myocardial infarction (05/21/24) Atherosclerotic heart disease of [place] coronary artery without angina pectoris (05/21/24) Elevated blood-pressure reading, without diagnosis of hypertension (05/21/24) Subjective Subjective Feeling fine. Had severe bruising and in his right upper extremity after catheterization. Swelling is gone down but still slightly bruised and is proximal right forearm. Objective Data Objective Data Vital Signs: Vital Signs Temp Pulse Resp BP Pulse Ox O2 Del Method 36.5 C L 68 18 146/92 H 98 Room Air 05/22/24 03:33 05/22/24 03:33 05/22/24 03:33 05/22/24 03:33 05/22/24 03:05/22/24 07:21 Oxygen Delivery Method Room Air Weight: 106.594 kg Body Mass Index (BMI) 34.7 Intake & Output: Intake and Output for Last 24 Hours 05/20/24 05/21/24 05/22/24 23:59 23:59 23:59 Intake Total 0 / 0 1000 / 1000 Balance 0 / 0 1000 / 1000 Lab / Micro Data 05/22/24 04:45 05/22/24 04:45 Labs: Laboratory Results - last 24 hr 05/21/24 11:15: WBC 11.7 H, RBC 5.26, Hgb 15.3, Hct 46.4, MCV 88.2, MCH 29.1, MCHC 33.0, RDW Std Deviation 41.9, RDW Coeff of Oswaldo 12.9, Plt Count 257, MPV 11.3, Immature Gran % (Auto) 0.900, Neut % (Auto) 45.4 L, Lymph % (Auto) 40.3, [place] % (Auto) 9.5, Eos % (Auto) 2.9, Baso % (Auto) 1.0, Absolute Neuts (auto) 5.3, Absolute Lymphs (auto) 4.71 H, Nucleated RBC % 0, Sodium 140, Potassium 3.1 L, Chloride 105, Carbon Dioxide 28.0, Anion Gap 7, BUN 19 H, Creatinine 1.00, Est GFR (MDRD) Af Amer 99, Est GFR (MDRD) Non-Af 82, BUN/Creatinine Ratio 19.0, Glucose 125 H, Calcium 9.3, Troponin I High Sens 8 05/21/24 13:15: Troponin I High Sens 218 H* 05/22/24 04:45: WBC 14.8 H, RBC 4.81, Hgb 14.2, Hct 42.1, MCV 87.5, MCH 29.5, MCHC 33.7, RDW Std Deviation 41.2, RDW Coeff of Oswaldo 13.0, Plt Count 216, MPV 11.0, Sodium 138, Potassium 4.3, Chloride 109 H, Carbon Dioxide 22.0, Anion Gap 7, BUN 20 H, Creatinine 0.76, Estim Creat Clear Calc 129.02, Est GFR (MDRD) Af Amer 137, Est GFR (MDRD) Non-Af 113, BUN/Creatinine Ratio 26.4 H, Glucose 152 H, Calcium 8.8, Total Bilirubin 0.60, AST 153 H, ALT 58, Alkaline Phosphatase 60, Total Protein 6.7, Albumin 3.5, Globulin 3.2, Albumin/Globulin Ratio 1.1, Triglycerides 111, Cholesterol 237 H, LDL Cholesterol 162 H, VLDL Cholesterol 22, HDL Cholesterol 53 Radiography Diagnostic Testing: Radiology Impression Chest X-Ray 05/21/24 12:35 IMPRESSION: No active or acute cardiopulmonary disease. Electronically Signed: Francisco J Leblanc MD at 12:51 EDT , Physical Exam Const alert and no apparent distress HEENT head/scalp atraumatic and moist oral mucous membranes Resp normal respiratory effort, no retractions, no use of accessory muscles and clear to auscultation bilaterally Cardio regular rate, regular rhythm, S1 normal heart sound and S2 normal heart sound GI normal to inspection, nondistended, normoactive bowel sounds, soft to palpation, non-tender and non-distended Extremity Extremity Narrative: Bruising of proximal right forearm with slight tenderness palpation. Normal cap refill distally and normal sensation in fingertips Assessment & Plan Assessment/Plan (1) Non-ST elevated myocardial infarction (non-STEMI): PLAN: Plan Non-ST elevation CO-type I (not II) * s/p NICOLE to LAD on 05/21 * ASA, clopidogrel, carvedilol, losartan, atorvastatin * echo shows an EF of 45%. * Patient noted to have 50-70 percent stenosis of the diagonal branch. Patient will need to have an outpatient stress test in about 6 weeks time. Ischemic cardiomyopathy * Patient will need to follow-up with cardiology as outpatient have repeat echocardiogram. Right upper extremity ecchymosis and hematoma * Secondary to cardiac catheterization. * Patient reporting improvement of the swelling at this time. * Patient will be weight lifting limit of 10 pounds for 1 week of his right upper extremity. hypokalemia * resolved after supplemental potassium. Disposition will be to home hopefully on the . Charges/Coding Visit Charges Inpatient E&M: 86990 Subs Hosp L2
--- NOTE | 2024-05-22 08:00 | CRPH1.INSTRU ---
General Education Discussed with Patient CAD and cardiac anatomy and function:: Patient communicates acknowledgment Explanation of diagnoses and procedures:: Patient communicates acknowledgment Sign/Symptoms of AR:: Patient communicates acknowledgment Antiplatelet therapy: Patient communicates acknowledgment Proper use of NTG-SL: Patient communicates acknowledgment Emergency procedures and activation of EMS: Patient communicates acknowledgment Compliance of all prescribed medications: Patient communicates acknowledgment Smoking Risk Factors Patient Nicotine/Smoking Risk Factors Are:: Never smoked Response Code Nicotine/Smoking Response Code:: Not instructed Dyslipidemia Recommendations Recommendations Include:: Lipid profile not available Response Code Dyslipidemia Response Code:: Patient communicates acknowledgment Overweight/Obesity Risk Factors Patient Overweight/Obesity Risk Factors Are:: Overweight = 26-29 Recommendations Recommendations Include:: Exercise 5-7 times/week Response Code Overweight/Obesity:: Patient communicates acknowledgment Hypertension Risk Factors Patient Hypertension Risk Factors Are:: No documented hx of HTN Recommendations Recommendations Include:: Maintain BP <130/85 Response Code Hypertension:: Patient communicates acknowledgment Heart Disease Risk Factors Patient Heart Disease Risk Factors Are:: Previous cardiac event Recommendations Recommendations Include:: Educated family members of their risk Response Code Heart Disease Response Code:: Patient communicates acknowledgment Diabetes Risk Factors Patient Diabetes Risk Factors Are:: No documented hx of diabetes Metabolic Syndrome Recommendations Recommendations Include:: Reinforce compliance to risk factor modifications Response Code Metabolic Syndrome Response Code:: Patient communicates acknowledgment Sedentary Recommendations Recommendations Include:: Benefits of regular exercise and Monitored Outpatient Cardiac Rehab Response Code Sedentary Response Code:: Patient communicates acknowledgment Stress Recommendations Recommendations Include:: Identification of stressors, and assessment of coping skills Response Code Stress Response Code:: Patient communicates acknowledgment
--- NOTE | 2024-05-22 08:04 | PCM.PN.CARD ---
Subjective Subjective The patient reports that he has done well overnight. He had some tightness in his right forearm and a small to moderate hematoma. There is some ecchymoses noted. He denies any sensory loss. The patient's telemetry did show some short runs of nonsustained VT early after reperfusion. He is having rare PVCs at this time. In retrospect the patient reports he has been having some left shoulder discomfort with activity that was felt to be related to bursitis or a shoulder joint musculoskeletal issue. This may have been an anginal equivalent. His EKG today shows a septal infarct pattern the T waves have returned to baseline. Objective Data Vital Signs: Vital Signs Temp Pulse Resp BP Pulse Ox O2 Del Method 97.7 F L 68 18 146/92 H 98 Room Air 05/22/24 03:05/22/24 03:33 05/22/24 03:05/22/24 03:05/22/24 03:05/22/24 07:21 Oxygen Delivery Method Room Air Weight: 234 lb 15.992 oz Body Mass Index (BMI) 34.7 Intake & Output: Intake and Output for Last 24 Hours 05/20/24 05/21/24 05/22/24 23:59 23:59 23:59 Intake Total 0 / 0 1000 / 1000 Balance 0 / 0 1000 / 1000 Lab / Micro Data Attestation: I reviewed the patient's lab results. 05/22/24 04:45 05/22/24 04:45 Labs: Laboratory Results - last 24 hr 05/21/24 11:15: WBC 11.7 H, RBC 5.26, Hgb 15.3, Hct 46.4, MCV 88.2, MCH 29.1, MCHC 33.0, RDW Std Deviation 41.9, RDW Coeff of Oswaldo 12.9, Plt Count 257, MPV 11.3, Immature Gran % (Auto) 0.900, Neut % (Auto) 45.4 L, Lymph % (Auto) 40.3, [place] % (Auto) 9.5, Eos % (Auto) 2.9, Baso % (Auto) 1.0, Absolute Neuts (auto) 5.3, Absolute Lymphs (auto) 4.71 H, Nucleated RBC % 0, Sodium 140, Potassium 3.1 L, Chloride 105, Carbon Dioxide 28.0, Anion Gap 7, BUN 19 H, Creatinine 1.00, Est GFR (MDRD) Af Amer 99, Est GFR (MDRD) Non-Af 82, BUN/Creatinine Ratio 19.0, Glucose 125 H, Calcium 9.3, Troponin I High Sens 8 05/21/24 13:15: Troponin I High Sens 218 H* 05/22/24 04:45: WBC 14.8 H, RBC 4.81, Hgb 14.2, Hct 42.1, MCV 87.5, MCH 29.5, MCHC 33.7, RDW Std Deviation 41.2, RDW Coeff of Oswaldo 13.0, Plt Count 216, MPV 11.0, Sodium 138, Potassium 4.3, Chloride 109 H, Carbon Dioxide 22.0, Anion Gap 7, BUN 20 H, Creatinine 0.76, Estim Creat Clear Calc 129.02, Est GFR (MDRD) Af Amer 137, Est GFR (MDRD) Non-Af 113, BUN/Creatinine Ratio 26.4 H, Glucose 152 H, Calcium 8.8, Total Bilirubin 0.60, AST 153 H, ALT 58, Alkaline Phosphatase 60, Total Protein 6.7, Albumin 3.5, Globulin 3.2, Albumin/Globulin Ratio 1.1, Triglycerides 111, Cholesterol 237 H, LDL Cholesterol 162 H, VLDL Cholesterol 22, HDL Cholesterol 53 Rhythm Strip Rhythm Strip: Sinus Rhythm Rate: 70 Ectopy: PVC(s) Cardiology Labs/Tests 05/21/24 11:15: WBC 11.7 H, RBC 5.26, Hgb 15.3, Hct 46.4, MCV 88.2, MCH 29.1, MCHC 33.0, Plt Count 257, MPV 11.3, Immature Gran % (Auto) 0.900, Neut % (Auto) 45.4 L, Lymph % (Auto) 40.3, [place] % (Auto) 9.5, Eos % (Auto) 2.9, Baso % (Auto) 1.0, Absolute Neuts (auto) 5.3, Nucleated RBC % 0, Sodium 140, Potassium 3.1 L, Chloride 105, Carbon Dioxide 28.0, Anion Gap 7, BUN 19 H, Creatinine 1.00, Est GFR (MDRD) Af Amer 99, Est GFR (MDRD) Non-Af 82, BUN/Creatinine Ratio 19.0, Glucose 125 H, Calcium 9.3 06/27/24 04:45: WBC 14.8 H, RBC 4.81, Hgb 14.2, Hct 42.1, MCV 87.5, MCH 29.5, MCHC 33.7, Plt Count 216, MPV 11.0, Sodium 138, Potassium 4.3, Chloride 109 H, Carbon Dioxide 22.0, Anion Gap 7, BUN 20 H, Creatinine 0.76, Est GFR (MDRD) Af Amer 137, Est GFR (MDRD) Non-Af 113, BUN/Creatinine Ratio 26.4 H, Glucose 152 H, Calcium 8.8, Total Bilirubin 0.60, Triglycerides 111, Cholesterol 237 H, LDL Cholesterol 162 H, VLDL Cholesterol 22, HDL Cholesterol 53 Rhythm: EKG: ECHO: Stress Test: Cardiac Cath: PCI: CT Surgery: Holter monitor: EPS: PPM: CXR: Chest CT Scan: Radiography Diagnostic Testing: Radiology Impression Chest X-Ray 05/21/24 12:35 IMPRESSION: No active or acute cardiopulmonary disease. Electronically Signed: Francisco J Leblanc MD at 12:51 EDT , EKG Follow-up EKG: Attestation: I personally reviewed and interpreted this EKG as follows: (Normal sinus rhythm. Septal infarct with Q waves in V1 and V2. T waves less impressive than preintervention ECG.) Physical Exam Const alert and oriented x3 HEENT normocephalic Eyes EOMs intact bilaterally Neck no JVD Chest inspection of chest normal Resp normal respiratory effort and clear to auscultation bilaterally Cardio regular rate, regular rhythm, S1 normal heart sound, S2 normal heart sound, no murmurs, no rub and no gallops Jugular Venous Distention: Negative for JVD GI soft to palpation Extremity normal to inspection Extremity Narrative: Tense right forearm with slight ecchymosis. Normal right hand sensation and capillary refill. General Extremity: Negative for edema Skin Wound Narrative: slight along right forearm Neuro Neuro Narrative: Alert and oriented X3 Psych mental status grossly normal Assessment & Plan Assessment/Plan (1) Non-ST elevated myocardial infarction (non-STEMI): PLAN: The patient technically had a non-STEMI. His EKG this morning is consistent with a septal infarct which coincides with his coronary anatomy occlusion. The patient had a large left anterior descending that gave rise to a huge diagonal branch with multiple anterior lateral branch secondary branches. The continuation of the LAD shortly after this bifurcation was totally obstructed it was reperfused with a 2.5 mm stent and essentially functions as a septal perforating trunk. There are no further diagonals coming off of it just multiple septal perforators but it does course to the apex of the ventricle. The large diagonal branch has an eccentric 50 to 70% stenosis at the ostium. This is a 3.5-4.0 mm vessel. And should be reevaluated with functional stress testing in 6 weeks. The patient's circumflex is a large nondominant vessel. The right coronary is a large dominant vessel with minimal luminal irregularities. The right coronary gives rise to a large posterior descending artery and terminates in a moderate size posterior ventricular branch. The tentative plan at this time would be to perform an augmented stress test either stress nuclear stress echo in 6 weeks to ascertain the need for further stenting of the LAD diagonal bifurcation. The stent in the LAD is distal to this bifurcation. The patient had a small hematoma in the right forearm. He has good capillary refill and no sensory deficits in his hand and is able to move his hand without restrictions. I did go over with the patient his secondary risk factor modification therapies and LV recovery therapies in detail. He is a pharmacist and understands the pharmacology involved. I also reviewed with the patient today the likelihood that he will go through a grieving stage with the loss of his perfect health. He is already agreeable to proceed with cardiac rehab and I think this would be of great benefit to him getting back to full gainful activities without any restrictions in the 6-week timeframe. The patient should be able to return to work as a pharmacist in 7 to 10 days. We went over activity restrictions in detail including a weight lifting limit of 10 pounds for a week with his right arm and to avoid any type of maneuvers that would require him to hold his breath or straining to perform for the next 6 weeks. The patient should not interrupt his Plavix and aspirin for any reason for 1 year. The patient was instructed to take this information to his primary care physician to arrange for cardiology follow-up when he returns to his home in [facility]. (2) Elevated blood pressure reading: PLAN: Patient's blood pressure remains elevated after doses of his Coreg and losartan. Will increase Coreg to 12.5 mg twice daily and the losartan to 50 mg daily. The patient's left ventricular ejection fraction was estimated at 45 to 50% by LV gram at the time of his acute event. (3) Hyperlipidemia: QUALIFIERS: Hyperlipidemia type: pure hypercholesterolemia Qualified Code(s): E78.00 - Pure hypercholesterolemia, unspecified PLAN: Patient's lipid profile shows total cholesterol of 237, triglycerides 111, LDL 162, and HDL of 53. LFTs show an AST of 153 the day after his acute infarct. ALT is 58 alkaline phos is 60. The patient will be instituted on atorvastatin 80 mg daily. He should have liver function tests and fasting lipid profiles repeated in 6 weeks. (4) Hyperglycemia: PLAN: Patient's initial blood sugar in the emergency department is 125 his fasting blood sugar this morning was 152. The patient has no history of diabetes or hyperglycemia. We will check a hemoglobin A1c. PLAN: Plan 1. Will increase Coreg to 12.5 mg twice daily and losartan to 50 mg daily and monitor blood pressure and heart rate over the next 24 hours. 2. Will increase atorvastatin to intensive statin therapy of 80 mg daily. 3. Repeat fasting lipids and liver function test (AST 157 day after PA, ALT 58) in 6 weeks. 4. Continue aspirin 81 mg and Plavix 75 mg daily uninterrupted for 1 year. 5. Follow-up with primary care physician to arrange cardiology follow-up in [facility] in the next week. 6. From a cardiovascular standpoint should be able to start cardiac rehab in 2 to 3 weeks. 7. Would recommend performing stress echo or stress nuclear treadmill test in 6 weeks to evaluate the first diagonal branch. 8. If any further assistance is needed please call me directly my cell phone is [phone]. 9. The patient is planned to be discharged on 05/23/2024. Charges/Coding Visit Charges Inpatient E&M: 94493 Subs Hosp L3
[2024-05-22 09:22] LABS: Hemoglobin A1c 5.5 % (3.8-5.6)
[2024-05-22 09:30] VITALS: BP 147/95; PULSE 65; RESP 16; TEMP 36.6; O2SAT 100
[2024-05-22] MEDS: Aspirin E.C. 81 MG Tablet PO (09:52)
[2024-05-22] MEDS: Clopidogrel Bisulfate 75 MG Tablet PO (09:52)
[2024-05-22] MEDS: Carvedilol 12.5 MG Tablet PO ×2 (09:54→17:04)
[2024-05-22] MEDS: Losartan Potassium 50 MG Tablet PO (09:54)
--- NOTE | 2024-05-22 10:00 | EKG12_ITS ---
Test Reason : POST PCI Blood Pressure : / mmHG Vent. Rate : 059 BPM Atrial Rate : 059 BPM P-R Int : 162 ms QRS Dur : 090 ms QT Int : 434 ms P-R-T Axes : 052 012 031 degrees QTc Int : 429 ms Sinus bradycardia Septal infarct , age undetermined Abnormal ECG When compared with ECG of 21-MAY-2024 17:58, MANUAL COMPARISON REQUIRED, DATA IS UNCONFIRMED Confirmed by Qasim Collado ([id number]), state editor JOVI HARDY ([id number]) on 05/23/2024 11:29:26 AM Referred By: Confirmed By:Qasim Collado
--- NOTE | 2024-05-22 11:15 | CASEMGMT ---
RN CM Face to Face with patient for initial transition planning/care coordination assessment. RN CM introduced self and role at [facility]. Patient lying in bed, alert and oriented. Patient willing to participate in assessment and is able to answer all questions appropriately. Care providers, pharmacy, and demographics verified. PCP: Willi Ward Specialists: none Preferred Pharmacy: [facility] in [place] Insurance: [place] PPO Prescription Benefit: yes Living Will/HPOA: yes, Cinthia Lerma LNOK: , daughter Living Arrangements: Patient lives with and daughter in a 2 story home. Patient is independent and able to ambulate stairs. Transportation: self, DME/HHC: Patient denies DME in the home. No previous HHC or SNF Patient wishes to discharge home, denies need for home health at this time. Patient states he has no further needs or concerns at this time. CM to follow for discharge planning needs that may arise. Disposition Plan: Patient to discharge home with family support and follow-up plans in place. Lorena WOODALLN, RN, CM
[2024-05-22] MEDS: Acetaminophen 325 MG Tablet 650 MG PO (13:09)
[2024-05-22 13:27] VITALS: BP 119/73; PULSE 63; RESP 16; TEMP 36.7; O2SAT 97
[2024-05-22 17:15] VITALS: BP 140/84; PULSE 59; RESP 18; TEMP 36.7; O2SAT 100
[2024-05-22 22:11] VITALS: BP 124/71; PULSE 58; RESP 18; TEMP 36.7; O2SAT 97
[2024-05-22] MEDS: Atorvastatin Calcium 80 MG Tablet PO (22:13)
[2024-05-23 04:00] VITALS: BP 115/77; PULSE 58; RESP 16; TEMP 35.8; O2SAT 96
--- NOTE | 2024-05-23 05:55 | EKG12_ITS ---
Test Reason : AM EKG Blood Pressure : / mmHG Vent. Rate : 058 BPM Atrial Rate : 058 BPM P-R Int : 162 ms QRS Dur : 086 ms QT Int : 466 ms P-R-T Axes : 013 013 044 degrees QTc Int : 457 ms Sinus bradycardia Septal infarct , age undetermined T wave abnormality, consider anterior ischemia Abnormal ECG When compared with ECG of 22-MAY-2024 04:41, MANUAL COMPARISON REQUIRED, DATA IS UNCONFIRMED Confirmed by Qasim Collado ([id number]), health editor JOVI HARDY ([id number]) on 05/26/2024 11:15:01 AM Referred By: Confirmed By:Qasim Collado
--- NOTE | 2024-05-23 07:27 | PCM.PN.CARD ---
Subjective Subjective The patient is resting comfortably, position in bed. He reports he is doing very well he took a shower yesterday without incident was able to walk 4 laps around the unit without any issues. Patient denies any recurrence of his chest symptoms. Right hand and forearm show no new changes he continues to have normal sensation and capillary refill. Hemoglobin A1c came back at 5.5. Blood pressure is much better controlled on his current medical regimen. Objective Data Vital Signs: Vital Signs Temp Pulse Resp BP Pulse Ox O2 Del Method 96.5 F L 58 L 16 115/77 96 Room Air 05/23/24 04:00 05/23/24 04:00 05/23/24 04:00 05/23/24 04:00 05/23/24 04:00 05/23/24 04:00 Oxygen Delivery Method Room Air Weight: 234 lb 15.992 oz Body Mass Index (BMI) 34.7 Intake & Output: Intake and Output for Last 24 Hours 05/21/24 05/22/24 05/23/24 23:59 23:59 23:59 Intake Total 0 / 0 1950 / 1950 200 / 200 Balance 0 / 0 1950 / 1950 200 / 200 Lab / Micro Data Attestation: I reviewed the patient's lab results. 05/22/24 04:45 05/22/24 04:45 Labs: Laboratory Results - last 24 hr 05/22/24 04:45: Hemoglobin A1c 5.5 Cardiology Labs/Tests 05/22/24 04:45: Hemoglobin A1c 5.5 Rhythm: EKG: ECHO: Stress Test: Cardiac Cath: PCI: CT Surgery: Holter monitor: EPS: PPM: CXR: Chest CT Scan: Radiography Diagnostic Testing: Radiology Impression Echocardiogram 05/22/24 07:00 Interpretation Summary Mid to distal inferior septal, anterior septal and apical severe hypokinesis. LVEF estimated at 45%. The left atrium is mildly enlarged. Right ventricular systolic pressure estimated to be 44 mmHg. Mildly dilated aortic root. The study was technically difficult. Ordering Physician: Maynor Moreno Referring Physician: NO PCP Performed By: Clara Phoenix, RDCS, RVT Physical Exam Const alert and oriented x3 HEENT normocephalic Eyes EOMs intact bilaterally Neck no JVD Resp normal respiratory effort and clear to auscultation bilaterally Cardio regular rate, regular rhythm, S1 normal heart sound, S2 normal heart sound, no murmurs, no rub and no gallops Extremity General Extremity: Negative for edema Neuro Neuro Narrative: alert and oriented X3 Psych mental status grossly normal Assessment & Plan Assessment/Plan (1) Non-ST elevated myocardial infarction (non-STEMI): PLAN: Patient's EKG shows expected evolution of inverted T waves in leads V2 through V4. He denies any recurrence of any symptoms. Echocardiogram shows septal and apical wall motion abnormalities consistent with his known LAD septal trunk lesion. Ejection fraction estimated 45%. Pulmonary artery pressures are elevated at 44?unknown etiology. (2) Hyperlipidemia: QUALIFIERS: Hyperlipidemia type: pure hypercholesterolemia Qualified Code(s): E78.00 - Pure hypercholesterolemia, unspecified PLAN: Patient's LDL is significantly elevated he will be maintained on Crestor 20 mg daily after discharge. Fasting lipids and liver function should be reevaluated in 6 weeks. Initial LDL at the time of presentation was 162 his AST was 153 ALT 58 and alkaline phos 60. The AST is felt to be related to his acute microinfarction. (3) Hyperglycemia: PLAN: Patient is hemoglobin A1c came back 5.5 I suspect the elevated fasting blood sugar is related to stress. The patient should be reevaluated as clinically indicated in the future by his primary service. (4) Hypertension: QUALIFIERS: Hypertension type: primary hypertension Qualified Code(s): I10 - Essential (primary) hypertension PLAN: Blood pressure is much better controlled on his current medical regimen. Recommend he continue the current meds and will follow-up with his primary service and cardiology to be determined when he returns home to [facility]. PLAN: Plan 1. From a cardiovascular standpoint the patient can be discharged home today. 2. Should limit his lifting with his right hand to 10 pounds for 1 week. He can progress back to regular activities over the next 2 to 6 weeks as tolerated. 3. Provide the patient has no new issues arise he should be able to return to gainful employment in 7 to 10 days. 4. Patient needs to follow-up with his primary service within the next 7 to 10 days if possible. I did give him my cell phone to call me if he has any issues or questions arise in the interim. 5. The patient needs to connect with a licensed loan officer assistant in [facility] area I gave him some information to assist with that. 6. I would recommend the patient undergo stress nuclear treadmill test in 6 weeks. This would be to ascertain the need for further intervention in the distribution of this huge diagonal branch perfusing most of his anterior and lateral wall. 7. The licensed loan officer assistant will be able to call our Manager Marketing Communication here at [facility] and we can electronically transfer the films to [facility]. The phone number to the Manager Marketing Communication is [phone]. 8. The patient should be enrolled in cardiac rehab after he is evaluated by the primary service. 9. I did supply him with a copy of his echo report, a copy of the summary report that I did yesterday about his stay, and his EKGs for his physicians in his hometown. Charges/Coding Visit Charges Inpatient E&M: 20072 Subs Hosp L3
[2024-05-23 09:14] VITALS: BP 136/88; PULSE 66; RESP 16; TEMP 36.7; O2SAT 97
[2024-05-23] MEDS: Aspirin E.C. 81 MG Tablet PO (09:15)
[2024-05-23] MEDS: Carvedilol 12.5 MG Tablet PO (09:15)
[2024-05-23] MEDS: Clopidogrel Bisulfate 75 MG Tablet PO (09:15)
[2024-05-23] MEDS: Losartan Potassium 50 MG Tablet PO (09:16)
--- NOTE | 2024-05-23 09:54 | PCM.DC.SUM ---
Providers Date of Admission: 05/21/24 Primary Care Physician: Nichelle Primary Care Phys Consultations 05/21/24 18:41 Consult: Cardiology Routine Consulting Provider: Qasim Collado Reason for Consult: type 2 NE EMERGENT Consult: No MD Notified: Yes Date Notified: 05/21/24 Time Notified: 18:06 Method of Notification: Verbal Reason For Visit: TYPE 2 NE Diagnosis Discharge Diagnosis (1) Non-ST elevated myocardial infarction (non-STEMI): Status: Acute Code(s): I21.4 - Non-ST elevation (NSTEMI) myocardial infarction (2) Hyperlipidemia: Status: Acute Code(s): E78.5 - Hyperlipidemia, unspecified Qualifiers: Hyperlipidemia type: pure hypercholesterolemia Qualified Code(s): E78.00 - Pure hypercholesterolemia, unspecified (3) Hyperglycemia: Status: Acute Code(s): R73.9 - Hyperglycemia, unspecified (4) Hypertension: Status: Chronic Code(s): I10 - Essential (primary) hypertension Qualifiers: Hypertension type: primary hypertension Qualified Code(s): I10 - Essential (primary) hypertension Plan Non-ST elevation NE-type I (not II) s/p NICOLE to LAD on 05/21 ASA, clopidogrel, carvedilol, losartan, atorvastatin echo shows an EF of 45%. Patient noted to have 50-70 percent stenosis of the diagonal branch. Patient will need to have an outpatient stress test in about 6 weeks time. Ischemic cardiomyopathy Patient will need to follow-up with cardiology as outpatient have repeat echocardiogram. EF 45%. Right upper extremity ecchymosis and hematoma Improving. Secondary to right radial cardiac catheterization. Patient reporting improvement of the swelling at this time. Patient will be weight lifting limit of 10 pounds for 1 week of his right upper extremity. hypokalemia resolved after supplemental potassium. Medications at Discharge Home Medications acetaminophen 325 mg tablet 1,000 mg (3.0769 x 325 mg) PO Q8 PRN Pain Score 1-10 #0 tabs 05/23/24 aspirin 81 mg tablet,delayed release 81 mg PO DAILYCM #0 tabs 05/23/24 atorvastatin 80 mg tablet 80 mg PO QHS #30 tabs 05/23/24 carvedilol 12.5 mg tablet 12.5 mg PO BIDCM #60 tabs 05/23/24 clopidogrel 75 mg tablet 75 mg PO DAILY #30 tabs 05/23/24 losartan 50 mg tablet 50 mg PO DAILY #30 tabs 05/23/24 Hospital Course Operations None Procedures 2-D Echocardiogram and Cardiac catheterization Summary of Care Provided Minutes Spent on Discharge: 40 Physical Exam Const alert and no apparent distress Constitutional Narrative: improving edema and ecchymosis in RUE. No respiratory distress. No conversational dyspnea. Weight / BMI Weight Weight: 106.594 kg Body Mass Index (BMI) 34.7 ABG / Lab / Microbiology Data 05/22/24 04:45 05/22/24 04:45 Radiography Diagnostic Testing: Radiology Impression Echocardiogram 05/22/24 07:00 Interpretation Summary Mid to distal inferior septal, anterior septal and apical severe hypokinesis. LVEF estimated at 45%. The left atrium is mildly enlarged. Right ventricular systolic pressure estimated to be 44 mmHg. Mildly dilated aortic root. The study was technically difficult. Ordering Physician: Maynor Moreno Referring Physician: NO PCP Performed By: Clara Phoenix, JANKI, RVT D/C Instructions Discharge Diet: Low fat / Low cholesterol Meaningful Use Info Meaningful Use Meaningful Use Diagnoses (Choose all that apply): AMI AMI/Post PCI/Angioplasty Aspirin given w/in 24hrs of arrival?: Yes ASA at discharge?: Yes Antiplatelet Therapy at Discharge:: Yes Statins at discharge?: Yes Randy/ARB at discharge?: Yes Beta Juan David at discharge?: Yes Done w/ Acute NE measure.: Yes Documented LVEF (%): 45 Ischemic Stroke Statin Dosing Therapy Reference: STATIN DOSE THERAPY REFERENCE: * Patients > 75 years receive moderate or high dose statin therapy. * Patients 75 years or YOUNGER should receive HIGH intensity statin dose unless contraindicated. You will be required to document reason for non-treatment if statin daily dose does not meet guidelines. HIGH DOSE STATIN THERAPY DAILY Atorvastatin > than or = to 40 mg Rosuvastatin > than or = to 20 mg Amlodipine + Atorvastatin > than or = to 2.5/40 mg Ezetimibe + Simvastatin 10/80 mg Simvastatin 80mg Discharge Plan Admission Admit Date/Time: 05/21/24 18:01 Primary Reason for Your Visit: NSTEMI Attending Provider: Joby Herman Primary Care Provider: Care Physician,No Primary Consulting Providers: Qasim Collado; J Carlos Crockett Instructions Additional Instructions / Restrictions: Per cardiology: Limit lifting with right hand to 10 pounds for 1 week. You can progress back to regular activities over the next 2 to 6 weeks as tolerated. If no new issues, you could return to work in 7 to 10 days. Follow up with your primary care physician in next 7 to 10 days if possible. Follow up with a general technician in [facility]. Cardiology recommends that you undergo stress nuclear treadmill test in 6 weeks. This would be to ascertain the need for further intervention in the distribution of this huge diagonal branch perfusing most of his anterior and lateral wall. The general technician will be able to call our Central Supply Tech here at [facility] and we can electronically transfer the films to [facility]. The phone number to the Central Supply Tech is [phone]. Follow up with cardiac rehab after he is evaluated by the primary service. Discharge Orders/Prescriptions Prescriptions: New losartan 50 mg Tablet 50 mg PO DAILY Qty: 30 0RF atorvastatin 80 mg Tablet 80 mg PO QHS Qty: 30 0RF acetaminophen 325 mg Tablet 1,000 mg PO Q8 PRN (Reason: Pain Score 1-10) Qty: 0 0RF carvedilol 12.5 mg Tablet 12.5 mg PO BIDCM Qty: 60 0RF clopidogrel 75 mg Tablet 75 mg PO DAILY Qty: 30 0RF aspirin 81 mg Tablet,Delayed Release (Dr/Ec) 81 mg PO DAILYCM Qty: 0 0RF Referrals / Follow Up: Care Physician,No Primary [Primary Care Provider] - [facility] Doctor,Out of [Non-Staff] - Disposition Disposition (needs filled in before D/C Order can be placed): Home, Self Care Charges/Coding Visit Charges Inpatient E&M: 53205 Disch Hosp >30min
--- NOTE | 2024-05-23 10:00 | EKG12_ITS ---
Test Reason : POST PCI Blood Pressure : / mmHG Vent. Rate : 054 BPM Atrial Rate : 054 BPM P-R Int : 168 ms QRS Dur : 084 ms QT Int : 432 ms P-R-T Axes : 042 005 019 degrees QTc Int : 409 ms Sinus bradycardia Otherwise normal ECG When compared with ECG of 21-MAY-2024 15:23, MANUAL COMPARISON REQUIRED, DATA IS UNCONFIRMED Confirmed by Qasim Collado ([id number]), editorial manager JOVI HARDY ([id number]) on 05/23/2024 11:29:35 AM Referred By: Confirmed By:Qasim Collado
--- NOTE | 2024-05-23 10:16 | CASEMGMT ---
Patient has order for discharge. RN CM in to discuss needs at discharge. Patient denies needs or help at discharge. Patient had no further questions or concerns.
--- NOTE | 2024-05-23 11:39 | PHA.DC.MC.R ---
Pharmacy [facility] has performed discharge medication reconciliation and counseling for this patient. The patient's discharge medication list was reviewed for discrepancies and discrepancies were resolved. The patient was counseled on the following discharge medications and changes in medications for homegoing were reviewed. 1. TYLENOL 2. ASPIRIN 3. PLAVIX 4. LIPITOR 5. COREG 6. LOSARTAN The Reason for Use, instructions for use, and potential side effects were reviewed for all new medications. The patient's questions regarding all of their medications were answered. The patient was able to verbally demonstrate an understanding of their discharge medications. The patient was counselled by Cristiano Miramontes PharmD Candidate Medications at Discharge Home Medications acetaminophen 325 mg tablet 1,000 mg (3.0769 x 325 mg) PO Q8 PRN Pain Score 1-10 #0 tabs 05/23/24 aspirin 81 mg tablet,delayed release 81 mg PO DAILYCM #0 tabs 05/23/24 atorvastatin 80 mg tablet 80 mg PO QHS #30 tabs 05/23/24 carvedilol 12.5 mg tablet 12.5 mg PO BIDCM #60 tabs 05/23/24 clopidogrel 75 mg tablet 75 mg PO DAILY #30 tabs 05/23/24 losartan 50 mg tablet 50 mg PO DAILY #30 tabs 05/23/24
== END 2024-05-23 11:01 | disposition home or self-care (01) | DRG 322 ==
LOC: ED 15:21 → PCU 18:55
PROVIDERS: Internal Medicine Cardiovascular Disease; Admitting Provider Internal Medicine; Emergency Provider Emergency Medicine
DX: I21.4 Non-ST elevation (NSTEMI) myocardial infarction (principal); I47.20 Ventricular tachycardia, unspecified; L76.32 Postprocedural hematoma of skin and subcutaneous tissue following other procedure; I20.0 Unstable angina; I10 Essential (primary) hypertension; E87.6 Hypokalemia; E78.00 Pure hypercholesterolemia, unspecified; I25.5 Ischemic cardiomyopathy; I49.3 Ventricular premature depolarization; R73.9 Hyperglycemia, unspecified; Z79.82 Long term (current) use of aspirin; Z79.02 Long term (current) use of antithrombotics/antiplatelets; Z79.899 Other long term (current) drug therapy
CPT/HCPCS: 36415; 71045; 80048; 80053; 80061; 83036; 84484; 85025; 85027; 92928; 93005; 93306; 93458; 99152; 99153; 99285; C1874; J7030; J7040; Q9957; Q9967; A4216; C1725; C1769; C1887; C1894; C8929; C9600